=== PATIENT | female | born 1970 | race Caucasian/White ===

== ENCOUNTER 2017-08-22 11:02 | Emergency (ER) | payer OTHER ==
[~2017-08-22] VITALS: Ht 152.4 cm; Wt 66.0 kg
[~2017-08-22 11:02] MED LIST: ALBUTEROL SULF8.5 GM IH; ASPIRIN EC325 MG PO; NEXIUM20 MG PO; NO HOME MEDS; TESSALON200 MG PO
[2017-08-22] MEDS ORDERED: TAMIFLU75 MG PO (12:22)
[2017-08-22 12:58] VITALS: BP 108/65
== END 2017-08-22 13:00 | disposition home or self-care (01) ==
LOC: EME 11:02
DX: J10.1 Influenza due to other identified influenza virus with other respiratory manifestations (principal); I10 Essential (primary) hypertension; E78.5 Hyperlipidemia, unspecified; F17.200 Nicotine dependence, unspecified, uncomplicated; Z88.5 Allergy status to narcotic agent; Z88.0 Allergy status to penicillin; Z88.6 Allergy status to analgesic agent
CPT/HCPCS: 87502; 99281; 99284